=== PATIENT | female | born 1985 | race Caucasian/White ===

== ENCOUNTER 2019-03-31 15:00 | Emergency (ER) | payer OTHER ==
[~2019-03-31] VITALS: Ht 157.5 cm; Wt 74.8 kg
[2019-03-31 17:12] VITALS: BP 168/90
--- NOTE | 2019-03-31 17:32 | RAD ---
Right knee 3 views: Reason for examination: Pain playing laser tag. No acute fracture or dislocation is seen. The bone density is normal. No abnormal periosteal reaction is seen. Joint spaces are maintained. There is probably a small joint effusion in the suprapatellar space. IMPRESSION: Probable small joint effusion in the suprapatellar space. No acute bony abnormality seen. Electronically signed by: Mary Stuart MD (03/31/2019 5:29 PM) [facility]
--- NOTE | 2019-03-31 17:57 | PHYS DOC ---
Past Medical History Past Medical History: No Pertinent History (MARTIN MUKHERJEE APRN) Past Surgical History: No Surgical History (MARTIN MUKHERJEE APRN) Alcohol Use: None Drug Use: None (MARTIN MUKHERJEE APRN) Adult General Chief Complaint Chief Complaint: KNEE INJURY HPI HPI Patient is a 33 year old female who presents to the ED today complaining of 6 out of 10 right anterior knee pain that began yesterday while playing laser tag, patient reports she fell off a 3 ft ledge landing on the right knee. No LOC. Patient reports the pain is worse on weight-bearing and flexion of the knee.denies anything specifically relieving the pain. (MARTIN MUKHERJEE APRN) Review of Systems Review of Systems Constitutional: Denies fever or chills [] Musculoskeletal: reports right knee pain Integument: Denies rash or skin lesions [] Neurologic: Denies headache, focal weakness or sensory changes [] All other systems were reviewed and found to be within normal limits, except as documented in this note. (MARTIN MUKHERJEE APRN) Allergies Allergies Allergies Coded Allergies Type Severity Reaction Last Updated Verified No Known Drug Allergies 03/31/19 No (ARLENE MCGUIRE DO) Physical Exam Physical Exam Constitutional: Well developed, well nourished, no acute distress, non-toxic appearance. [] Skin: Warm, dry, no erythema, no rash. [] Back: No tenderness, no CVA tenderness. [] Extremities: right knee with bruising on the anterior aspect. Soft tissue swelling noted on the anterior aspect of the knee. Limited range of motion to the rightknee especially flexion due to pain. No laxity.+2 right pedal pulse. Cap refill less than 2 seconds. Neurologic: Alert and oriented X 3, normal motor function, normal sensory function, no focal deficits noted. [] Psychologic: Affect normal, judgement normal, mood normal. [] (MARTIN MUKHERJEE APRN) Current Patient Data Vital Signs Vital Signs Date Time Temp Pulse Resp B/P (MAP) Pulse Ox O2 Delivery O2 Flow Rate FiO2 03/31/19 17:12 98.7 100 18 168/90 (116) 97 Room Air 98.7 (ARLENE MCGUIRE DO) EKG EKG [] (MARTIN MUKHERJEE APRN) Radiology/Procedures Radiology/Procedures []PROCEDURE: KNEE RIGHT 3V Right knee 3 views: Reason for examination: Pain playing laser tag. No acute fracture or dislocation is seen. The bone density is normal. No abnormal periosteal reaction is seen. Joint spaces are maintained. There is probably a small joint effusion in the suprapatellar space. IMPRESSION: Probable small joint effusion in the suprapatellar space. No acute bony abnormality seen. Electronically signed by: Mary Leary MD (03/31/2019 5:29 PM) [facility] [id number] DICTATED and SIGNED BY: MARY LEARY MD DATE: 03/31/191728 (MARTIN MUKHERJEE APRN) Course & Med Decision Making Course & Med Decision Making Pertinent Labs and Imaging studies reviewed. (See chart for details) This is a 33-year-old female patient presenting to the ED today with right knee pain after falling yesterday. Right knee xrays are negative for any acute findings noted for possible small joint effusion. Immobilizer provided by clinical research tech, neurovasucla exam is intact. Ice elevation. F/u with Ortho in one week. (MARTIN MUKHERJEE APRN) Dragon Disclaimer Dragon Disclaimer This electronic medical record was generated, in whole or in part, using a voice recognition dictation system. (MARTIN MUKHERJEE APRN) Departure Departure Impression: Primary Impression: Right knee pain Additional Impressions: Joint effusion, knee Contusion, knee Fall Disposition: 01 HOME, SELF-CARE Condition: STABLE Referrals: SHERICE BOLTON MD (PCP) SHMUEL TRIPLETT MD follow up in 1-2 weeks Patient Instructions: Contusion, [id number] Additional Instructions: You were treated for right knee pain and noted to have small joint effusion. Wear the immobilizer provided as tolerated. We sent your prescriptions to the pharmacy, take them as ordered Scripts Naproxen (NAPROXEN) 500 Mg Tablet 1 TAB PO BID for pain for 30 Days, #30 TAB 0 Refills Prov: MARTIN MUKHERJEE APRN 03/31/19 Methylprednisolone (MEDROL) 4 Mg Tab.ds.pk 1 PKG PO UD, #1 PKG Prov: MARTIN MUKHERJEE APRN 03/31/19 Hydrocodone/Apap 5-325 (NORCO 5-325 TABLET) 1 Each Tablet 1 TAB PO Q6HRS, #12 TAB Prov: MARTIN MUKHERJEE APRN 03/31/19 Attending Signature Attending Signature I have reviewed the PA/DOCUMENT RESTORER's note and plan of care. I was available for consultation as needed during the patient's visit in the emergency department. I agree with the clinical impression, plan, and disposition. (ARLENE MCGUIRE DO) Problem Qualifiers Primary Impression: Right knee pain Chronicity: acute Qualified Codes: M25.561 - Pain in right knee Additional Impressions: Joint effusion, knee Laterality: right Qualified Codes: M25.461 - Effusion, right knee Contusion, knee Encounter type: initial encounter Laterality: right Qualified Codes: S80.01XA - Contusion of right knee, initial encounter Fall Encounter type: initial encounter Qualified Codes: W19.XXXA - Unspecified fall, initial encounter MARTIN MUKHERJEE SHELL FREEZING MACHINE OPERATOR Mar 31, 2019 17:56 ARLENE MCGUIRE DO Apr 01, 2019 06:27
[2019-03-31] MEDS ORDERED: METH4TAB2 PO (18:08)
[2019-03-31] MEDS ORDERED: NAPR-514 PO (18:08)
[2019-03-31] MEDS ORDERED: HYDR-3164 PO (18:08)
== END 2019-03-31 18:14 | disposition home or self-care (01) ==
LOC: ER 15:00
DX: S80.01XA Contusion of right knee, initial encounter (principal); M25.461 Effusion, right knee; M25.561 Pain in right knee; W19.XXXA Unspecified fall, initial encounter; Y93.89 Activity, other specified; Y92.89 Other specified places as the place of occurrence of the external cause; Y99.8 Other external cause status
CPT/HCPCS: 29505; 73562; 99284